=== PATIENT | male | born 1955 | race Two or more races ===

== ENCOUNTER 2020-05-07 20:11 | Inpatient (IN) | payer BC, OTHER ==
[~2020-05-07] VITALS: Ht 172.7 cm; Wt 72.1 kg
[2020-05-07] MEDS ORDERED: PROPOFOL 100 ML IV ONE (20:15)
[2020-05-07] MEDS ORDERED: ETOMIDATE (2MG/ML) 20ML VIAL IV ONE (20:16)
[2020-05-07] MEDS ORDERED: SUCCINYLCHOLINE CHLORIDE 20 MG/ML 10ML VIAL IV ONE (20:16)
[2020-05-07] MEDS ORDERED: LORazepam 2MG/ML-1ML VIAL ONE (20:22)
[2020-05-07] MEDS ORDERED: LIDOCAINE 2%HCL (LOCAL ANESTH.) INJ 20ML MDV ONE (20:39)
[2020-05-07] MEDS ORDERED: ANGIOMAX 250 MG VIAL IV ONE (20:39)
[2020-05-07] MEDS ORDERED: MIDAZOLAM HCL 2MG/2ML 2ml VIAL (1mg/ml) ONE (20:40)
[2020-05-07] MEDS ORDERED: SODIUM CHL 0.9% 50 ML ONE (20:40)
[2020-05-07] MEDS ORDERED: fentaNYL CITRATE 100 MCG/2 ML VL ONE (20:40)
[2020-05-07] MEDS ORDERED: HEPARIN SODIUM (PORCINE) 5000 UNITS/ML 1ML VIAL ONE (20:41)
[2020-05-07] MEDS ORDERED: CLOPIDOGREL BISULFATE 75 MG TAB ONE (20:41)
[2020-05-07] MEDS ORDERED: METOPROLOL TARTRATE 50 MG TAB ONE (20:41)
[2020-05-07] MEDS ORDERED: ATORVASTATIN 20 MG TAB ONE (20:41)
[2020-05-07] MEDS ORDERED: MORPHINE SULFATE INJECTION 2 MG/ML SYRG ONE (20:41)
[2020-05-07] MEDS ORDERED: ASPirin 81 mg TAB ONE (20:42)
[2020-05-07] MEDS ORDERED: ONDANSETRON HCL 4 MG/2 ML VIAL ONE (20:42)
[2020-05-07 20:47] LABS: Basophils # (auto) 0.2 10 ^3/uL (0-0.2); Basophils % (auto) 1.2 % (0.0-2.0); Eosinophils # (auto) 0.1 10 ^3/uL (0-0.8); Eosinophils % (auto) 0.9 % (0.0-7.0); Hematocrit 46.7 % (41.0-53.0); Hemoglobin 15.4 g/dL (13.5-17.5); Lymphocytes # (auto) 7.1 10 ^3/uL (0.4-5.4); Lymphocytes % (auto) 45.8 % (10.0-50.0); Mean Corpuscular Hemoglobin 29.6 pg (28.0-32.0); Mean Corpuscular Volume 89.8 fL (80.0-100.0); Monocytes # (auto) 1.3 10 ^3/uL (0-1.3); Monocytes % (auto) 8.3 % (0.0-12.0); Neutrophils # (auto) 6.8 10 ^3/uL (1.6-8.6); Neutrophils % (auto) 43.8 % (37.0-80.0); Nucleated Red Blood Cells % 0.1 %; Red Cell Distribution Width 15.6 % (11.8-14.3); White Blood Cell 15.4 10^3/uL (4.4-10.8)
[2020-05-07] MEDS ORDERED: LORazepam 2MG/ML-1ML VIAL IV ONE (21:00)
[2020-05-07 21:02] LABS: Alanine Aminotransferase 41 U/L (16-61); Albumin 3.5 g/dL (3.4-5.0); Anion Gap 16 (5-15); Aspartate Aminotransferase 44 U/L (15-37); BUN/Creatinine Ratio 14.1; Blood Alcohol < 3.0 mg/dL (0-5); Blood Urea Nitrogen 19 mg/dL (7-18); Calcium 8.8 mg/dL (8.5-10.1); Carbon Dioxide 19 mmol/L (21-32); Chloride 105 mmol/L (98-107); GFR African American 69 mL/min; GFR Non-African American 57 mL/min; Glucose 201 mg/dL (74-106); Magnesium 2.6 mg/dL (1.6-2.6); Potassium 3.4 mmol/L (3.5-5.1); Sodium 140 mmol/L (136-145)
[2020-05-07 21:05] LABS: INR 1.05 (0.9-1.15); Partial Thromboplastin Time 27.6 sec (23.0-31.2)
[2020-05-07 21:06] LABS: Alkaline Phosphatase 73 U/L (45-117); Bilirubin, Total 0.4 mg/dL (0.2-1.0); Total Protein 7.2 g/dL (6.4-8.2)
[2020-05-07] MEDS ORDERED: niCARdipine 25 MG/10 ML VIAL IV ONE (21:08)
[2020-05-07] MEDS ORDERED: EPTIFIBATIDE INJ (2MG/ML) 10ML VIAL IV ONE (21:09)
[2020-05-07] MEDS ORDERED: IOHEXOL 350 MG/ML 100ML IJ ONE ×2 (21:13→21:37)
[2020-05-07] MEDS ORDERED: EPINEPHrine HCL 1 MG/10 ML SYRG ONE (21:14)
[2020-05-07] MEDS ORDERED: IODIXANOL 320MG/ML 100ML BTL IV ONE (21:38)
[2020-05-07] MEDS ORDERED: HYDROmorphone HCL 2 MG/ML VL IV PRN ×2 (22:00→22:30)
[2020-05-07] MEDS ORDERED: HYDROcodone-ACET 5/325MG TAB PO PRN ×2 (22:00→22:30)
[2020-05-07] MEDS ORDERED: METOPROLOL TARTRATE 25 MG TAB PO SCH (22:00)
[2020-05-07] MEDS ORDERED: ONDANSETRON HCL 4 MG/2 ML VIAL IV ONE (22:00)
[2020-05-07] MEDS ORDERED: cefTRIAXone 1GM/50ML D5W 50 ML IV ONE (22:30)
[2020-05-07 23:36] VITALS: BP 104/72
[2020-05-08] MEDS: SODIUM CHLORIDE 0.9% 1,000 ML IV SCH ×3 (00:17→18:00)
[2020-05-08] MEDS: SODIUM CHLOR 0.9% PF (SALINE LOCK) 10ML VIAL/SYR IV SCH ×4 (00:18→21:59)
[2020-05-08] MEDS: METOPROLOL TARTRATE 25 MG TAB PO SCH ×3 (00:19→22:00)
[2020-05-08] MEDS ORDERED: ONDANSETRON HCL 4 MG/2 ML VIAL IV ONE (00:30)
[2020-05-08] MEDS ORDERED: ASPirin 81 mg TAB PO ONE (00:30)
[2020-05-08] MEDS ORDERED: ATORVASTATIN 20 MG TAB PO ONE (00:30)
[2020-05-08] MEDS ORDERED: CLOPIDOGREL 300 MG TAB PO ONE (00:30)
[2020-05-08] MEDS ORDERED: HEPARIN 1,000 UNITS/ml 1ML VIAL IV ONE (00:30)
[2020-05-08] MEDS ORDERED: METOPROLOL TARTRATE 50 MG TAB PO ONE (00:30)
[2020-05-08] MEDS ORDERED: MORPHINE SULFATE INJECTION 2 MG/ML SYRG IV ONE (00:30)
[2020-05-08 05:00] VITALS: BP 100/58
[2020-05-08 06:09] LABS: Hematocrit 41.6 % (41.0-53.0); Hemoglobin 14.1 g/dL (13.5-17.5); Mean Corpuscular Hemoglobin 29.6 pg (28.0-32.0); Mean Corpuscular Hgb Conc. 33.8 g/dL (32.0-36.0); Mean Corpuscular Volume 87.6 fL (80.0-100.0); Red Blood Cells 4.75 10^6/uL (4.5-5.90); Red Cell Distribution Width 15.2 % (11.8-14.3)
[2020-05-08 06:22] LABS: Potassium 4.4 mmol/L (3.5-5.1)
[2020-05-08 06:27] LABS: Basophils % (manual) 0 (0.0-2.0); Blast Cells 0; Eosinophils % (manual) 0 (0-7); Metamyelocytes % 0; Myelocytes % 0; Promyelocytes % 0; Reactive Lymphocytes 0
[2020-05-08 06:44] LABS: Albumin 2.8 g/dL (3.4-5.0); BUN/Creatinine Ratio 20.2; Bilirubin, Total 0.4 mg/dL (0.2-1.0); Calcium 8.5 mg/dL (8.5-10.1); Total Protein 6.2 g/dL (6.4-8.2)
[2020-05-08 08:44] VITALS: BP 107/66
[2020-05-08] MEDS: AMIODARONE HCL 200 MG TAB PO SCH ×2 (09:53→21:59)
[2020-05-08 10:33] VITALS: BP 99/63
[2020-05-08 12:17] LABS: Band Neutrophils % (manual) 6; Lymphocytes % (manual) 5 (10.0-50.0); Monocytes % (manual) 2 (0-12)
[2020-05-08 12:58] VITALS: BP 107/66
[2020-05-08 16:40] VITALS: BP 108/72
[2020-05-08] MEDS: PIPERACILLIN-TAZOB 3.375GM 100 ML IV SCH (17:33)
[2020-05-08 21:00] VITALS: BP 113/70
[2020-05-08] MEDS: TICAGRELOR 90 MG TAB PO SCH (21:59)
[2020-05-08] MEDS ORDERED: ATORVASTATIN 20 MG TAB PO SCH (22:00)
[2020-05-08] MEDS ORDERED: TEMAZEPAM 15 MG CAP PO PRN (23:30)
[2020-05-09] MEDS: PIPERACILLIN-TAZOB 3.375GM 100 ML IV SCH ×4 (00:16→17:33)
[2020-05-09 05:00] VITALS: BP 113/73
[2020-05-09] MEDS: SODIUM CHLOR 0.9% PF (SALINE LOCK) 10ML VIAL/SYR IV SCH ×2 (06:11→14:18)
[2020-05-09 06:58] LABS: Basophils # (auto) 0.1 10 ^3/uL (0-0.2); Basophils % (auto) 0.5 % (0.0-2.0); Eosinophils # (auto) 0 10 ^3/uL (0-0.8); Eosinophils % (auto) 0.1 % (0.0-7.0); Lymphocytes # (auto) 1.6 10 ^3/uL (0.4-5.4); Lymphocytes % (auto) 14.1 % (10.0-50.0); Mean Corpuscular Hemoglobin 29.9 pg (28.0-32.0); Mean Corpuscular Hgb Conc. 34.2 g/dL (32.0-36.0); Mean Corpuscular Volume 87.4 fL (80.0-100.0); Monocytes # (auto) 0.9 10 ^3/uL (0-1.3); Monocytes % (auto) 7.6 % (0.0-12.0); Neutrophils % (auto) 77.7 % (37.0-80.0); Red Blood Cells 4.34 10^6/uL (4.5-5.90); Red Cell Distribution Width 15.1 % (11.8-14.3); White Blood Cell 11.6 10^3/uL (4.4-10.8)
[2020-05-09 07:15] LABS: Potassium 3.8 mmol/L (3.5-5.1)
[2020-05-09 07:21] LABS: BUN/Creatinine Ratio 19.4; Calcium 8.4 mg/dL (8.5-10.1)
[2020-05-09 09:00] VITALS: BP 145/80
[2020-05-09] MEDS ORDERED: ASPirin 81 mg TAB PO SCH (10:00)
[2020-05-09] MEDS: AMIODARONE HCL 200 MG TAB PO SCH (10:12)
[2020-05-09] MEDS: TICAGRELOR 90 MG TAB PO SCH (10:12)
[2020-05-09] MEDS: METOPROLOL TARTRATE 25 MG TAB PO SCH (10:12)
[2020-05-09 13:06] VITALS: BP 137/89
[2020-05-09] MEDS ORDERED: NICOTINE 14 MG/24HR TOPICAL PATCH TD ONE (14:45)
[2020-05-09 17:00] VITALS: BP 141/97
== END 2020-05-09 20:34 | disposition home or self-care (01) | DRG 246 ==
LOC: ER 20:11 → EDBD 20:11 → TELE-WESTW 22:50
PROVIDERS: ADMIT Specialist; ATTEND Specialist
PROC: 5A12012 Performance of Cardiac Output, Single, Manual (ICD-10-PCS; principal; 2020-05-07)
PROC: 027034Z Dilation of Coronary Artery, One Artery with Drug-eluting Intraluminal Device, Percutaneous Approach (ICD-10-PCS; 2020-05-07)
PROC: 02C03ZZ Extirpation of Matter from Coronary Artery, One Artery, Percutaneous Approach (ICD-10-PCS; 2020-05-07)
PROC: 4A023N7 Measurement of Cardiac Sampling and Pressure, Left Heart, Percutaneous Approach (ICD-10-PCS; 2020-05-07)
PROC: B2111ZZ Fluoroscopy of Multiple Coronary Arteries using Low Osmolar Contrast (ICD-10-PCS; 2020-05-07)
PROC: B2151ZZ Fluoroscopy of Left Heart using Low Osmolar Contrast (ICD-10-PCS; 2020-05-07)
PROC: B41F1ZZ Fluoroscopy of Right Lower Extremity Arteries using Low Osmolar Contrast (ICD-10-PCS; 2020-05-07)
DX: I21.19 ST elevation (STEMI) myocardial infarction involving other coronary artery of inferior wall (principal); I46.9 Cardiac arrest, cause unspecified; I49.01 Ventricular fibrillation; F17.200 Nicotine dependence, unspecified, uncomplicated; Z20.822 Contact with and (suspected) exposure to COVID-19
CPT/HCPCS: 36415; 51702; 71045; 75710; 80048; 80053; 80061; 80320; 82728; 83735; 83880; 84443; 84484; 85007; 85025; 85027; 85379; 85610; 85730; 87426; 92933; 92950; 92973; 93005; 93458; 96374; 96375; 99152; 99153; 99291; C1874; G0378; J0330; J0696; J2250; J2405; J2543; J2704; Q9967